=== PATIENT | female | born 1965 | race Caucasian/White ===

== ENCOUNTER 2020-12-01 13:04 | Inpatient (IN) | payer MEDICARE, OTHER ==
[~2020-12-01] VITALS: Ht 162.6 cm; Wt 72.6 kg
[2020-12-01] MEDS ORDERED: MIRT45TA83 PO (13:47)
[2020-12-01] MEDS ORDERED: ZOLP10TA2 PO (13:47)
[2020-12-01] MEDS ORDERED: TIOT18CA3 IH (13:47)
[2020-12-01] MEDS ORDERED: BUDE10.2 INH (13:47)
[2020-12-01] MEDS ORDERED: AMOX500C2 PO (13:47)
[2020-12-01] MEDS ORDERED: IBUP100O19 PO (13:47)
[2020-12-01] MEDS ORDERED: LEVE500T9 PO (13:47)
[2020-12-01] MEDS ORDERED: SUMA100T16 PO (13:47)
[2020-12-01] MEDS ORDERED: ESZO3TAB27 PO (13:47)
[2020-12-01] MEDS ORDERED: ALPR0.255 PO (13:47)
[2020-12-01] MEDS ORDERED: ALPR0.5T8 PO ×2 (13:47)
[2020-12-01] MEDS ORDERED: ALBU8.5H8 INH (13:47)
[2020-12-01] MEDS ORDERED: DEXL60CA3 PO (13:47)
[2020-12-01] MEDS ORDERED: CLON0.5T4 PO (13:47)
[2020-12-01] MEDS ORDERED: QUET400T PO (13:47)
[2020-12-01] MEDS ORDERED: BENZ1TAB7 PO (13:47)
[2020-12-01] MEDS ORDERED: IBUPROFEN 600 MG TABLET PO ONE (14:00)
--- NOTE | 2020-12-01 14:04 | NUR ---
PT CO LEFT FINGER TIPS PAIN, PT SAYS THAT SHE FELL DOWN COUPLE OF DAYS AGO. ER MD ASSESSED THE PT, NO X-RAY NEEDED. MEDICATED FOR PAIN.
[2020-12-01] MEDS ORDERED: IBUPROFEN 600 MG TABLET ONE (14:09)
--- NOTE | 2020-12-01 16:10 | NUR ---
pt transfered to mhu in stable condition.
[2020-12-01] MEDS ORDERED: MAGNESIUM HYDROXIDE 30 ML LIQUID UDC PO PRN (16:30)
[2020-12-01] MEDS ORDERED: LORAZEPAM 0.5 MG TABLET PO PRN (16:30)
[2020-12-01] MEDS ORDERED: NICOTINE 21 MG/24HR PATCH TD ONE (17:30)
[2020-12-01] MEDS: ACETAMINOPHEN 325 MG TABLET PO PRN (17:30)
--- NOTE | 2020-12-01 17:50 | NUR ---
ADMISSION NOTE: Patient admitted to MHU room 141-A from the ER accompanied by nursing staff. Patient brought onto the unit in a wheelchair without adverse event. Patient's belongings inventoried with patient. Patient provided with education about the unit rules and policies and provided with orientation to the unit and her assigned room. Skin assessment completed, patient does not have dentures, hearing aids, or glasses. patient provided with patient's rights handbooks. Upon [id number] assessment, patient is anxious, restless, hyperactive, and hyperverbal. Patient appears disheveled and unkempt. She has appropriate interaction, but requires constant redirection during conversation due to tangential thoughts with flight of ideas. Patient denies SI/HI/VH. Reports occasional AH of "good voices" telling her she is safe. Patient has paranoid delusions. She believes that her room mate, Titus Mercedes, is purposely lying to get patient in trouble and killed by the gangs. patient believes that her whole family has been murdered by her ex husbands who are also trying to murder her. Patient reports occasional marijuana use. Reports smoking 2 packs of cigarettes daily, Nicotine patch ordered and administered. Patient reports she has a history of Bipolar Disorder and has a history of multiple manic episodes and inpatient psychiatric administrations. Patient provided with education about impulse control and to communicate her needs to staff appropriately.
[2020-12-01 20:20] VITALS: BP 117/66
[2020-12-01] MEDS: MIRTAZAPINE 15 MG TABLET PO SCH (21:04)
[2020-12-01] MEDS: QUETIAPINE FUMARATE 200 MG TABLET PO SCH (21:04)
[2020-12-01] MEDS: GABAPENTIN 300 MG CAPSULE PO SCH (21:04)
[2020-12-01] MEDS ORDERED: ALBUTEROL SULFATE 8 GM HFA.AER.AD INH PRN (22:30)
[2020-12-01] MEDS ORDERED: ALBUTEROL SULFATE 2.5 MG/3 ML NEBU NEB PRN (22:45)
--- NOTE | 2020-12-02 06:12 | NUR ---
Patient slept 7.30 hours last night without needing any PRN medications. Patient presented last night unkept and disheveled. Weapons And Tactics Instructor was unable to engage in any meaningful conversation. Patients speech is tangental and hyperverbal. Patient was energetic with poor eye contact. After patient went to sleep, no issues arouse. Continuing to monitor patient for safety, and to provide assistance when needed, following the plan of care.
[2020-12-02] MEDS: ACETAMINOPHEN 325 MG TABLET PO PRN (07:01)
[2020-12-02 07:30] VITALS: BP 132/90
[2020-12-02] MEDS: GABAPENTIN 300 MG CAPSULE PO SCH ×3 (09:03→16:51)
[2020-12-02] MEDS: NICOTINE 21 MG/24HR PATCH TD SCH (09:03)
[2020-12-02] MEDS: AMOXIcillin 500 MG CAPSULE PO SCH ×2 (09:34→16:51)
--- NOTE | 2020-12-02 13:19 | NUR ---
Firearms Report: Customer Sales Distributor completed and submitted a DOJ firearms report for 5150 danger to others and grave disability certifications. A copy of report has been placed in patient chart.
--- NOTE | 2020-12-02 15:17 | NUR ---
PATI Calender Let Off OperatorRoad Hogger Operator: PATI left a voicemail for patient's immigration case manager Oseas ([phone]) from [facility] to discuss treatment and discharge plan.
--- NOTE | 2020-12-02 15:17 | NUR ---
PATI Initial Discharge Plan: Patient was currently residing at a [facility] [address] [place] lodging manager, Taniya Son ([phone]). Patient will require alternate SNF placement upon discharge. PATI left a message for patient's skilled nursing case manager Oseas ([phone]) from [facility]. PATI will continue to work with patient and MD to ensure a safe and proper discharge plan.
--- NOTE | 2020-12-02 15:18 | NUR ---
PATI Collateral Information: SW spoke with patient's roommate, Wilmer ([phone]) who provided collateral information. Wilmer stated that the room and board is not a safe environment for the patient and that the patient needs alternate placement.
--- NOTE | 2020-12-02 15:19 | NUR ---
Brief Substance Abuse Intervention: Patient was provided with a brief substance abuse intervention and referred to [facility] [address], [place] [address] ([phone]); [place] [facility] [address], [address], [place] [address] ([phone]); [facility] ([phone]); [facility] ([phone]); [facility] ([phone]); and National Suicide Prevention Lifeline ([phone]).
[2020-12-02] MEDS: IBUPROFEN 400 MG TABLET PO PRN (15:55)
[2020-12-02 16:00] VITALS: BP 114/84
--- NOTE | 2020-12-02 17:56 | NUR ---
Patient seen and examined by MD Sterling, c/o of back pain. ordered ibuprofen 400mg q8H PRN given. Patient compliant with medication. no agitation noted. will continue monitor
[2020-12-02] MEDS: QUETIAPINE FUMARATE 200 MG TABLET PO SCH (20:12)
[2020-12-02] MEDS: MIRTAZAPINE 15 MG TABLET PO SCH (20:12)
[2020-12-02 20:22] VITALS: BP 159/89
--- NOTE | 2020-12-03 06:52 | NUR ---
PT SLEPT 10 H. PT IN NO ACUTE DISTRESS. PRESCRIBED MEDICATION GIVEN AND PT TOLERATED IT WELL. SAFETY AND COMFORT PROVIDED. WILL ENDORSE TO INCOMING NURSE FOR CONTINUITY OF CARE.
[2020-12-03 07:30] VITALS: BP 144/75
--- NOTE | 2020-12-03 07:30 | NUR ---
Patient is resting in bed. Awake, alert and oriented times 3. No sign of distress noted at this time. Safety precautions are in place. Will continue to monitor.
[2020-12-03] MEDS: GABAPENTIN 300 MG CAPSULE PO SCH ×3 (09:30→17:02)
[2020-12-03] MEDS: AMOXIcillin 500 MG CAPSULE PO SCH ×2 (09:30→17:02)
[2020-12-03] MEDS: NICOTINE 21 MG/24HR PATCH TD SCH (09:33)
[2020-12-03] MEDS: ACETAMINOPHEN 325 MG TABLET PO PRN (12:30)
[2020-12-03 16:42] VITALS: BP 130/96
--- NOTE | 2020-12-03 18:50 | NUR ---
Patient left resting in bed. No sign of distress noted. Patient remained calm and to herself. All medications given as ordered. Safety precautions are in place. Will endorse to the oncoming nurse.
[2020-12-03 20:12] VITALS: BP 148/85
[2020-12-03] MEDS: MIRTAZAPINE 15 MG TABLET PO SCH (20:25)
[2020-12-03] MEDS: QUETIAPINE FUMARATE 200 MG TABLET PO SCH (20:25)
[2020-12-03] MEDS: IBUPROFEN 400 MG TABLET PO PRN (20:25)
--- NOTE | 2020-12-03 21:30 | NUR ---
Received patient in her room c/o pain in her hand and asking for Motrin, will administer per order. No s/s of acute distress noted at this time. Compliant with medications. Q15 min checks in place for safety.
--- NOTE | 2020-12-04 06:49 | NUR ---
Patient slept 6 hours without PRN assistance. All needs were met and attended to. Q15 min safety checks remain intact
[2020-12-04 07:08] LABS: BASOPHILS % (AUTO) 0.7 % (0.0-2.0); EOSINOPHILS # (AUTO) 0.1 K/uL (0.0-0.7); HEMATOCRIT 42.1 % (31.2-41.9); HEMOGLOBIN 13.7 g/dL (10.9-14.3); LYMPHOCYTES # (AUTO) 2.2 K/uL (20.0-40.0); LYMPHOCYTES % (AUTO) 51.5 % (20.5-51.5); MEAN CORPUSCULAR HEMOGLOBIN 30.7 uug (24.7-32.8); MEAN CORPUSCULAR HGB CONC 33 g/dL (32.3-35.6); MEAN CORPUSCULAR VOLUME 94.5 fL (75.5-95.3); MONOCYTES # (AUTO) 0.6 K/uL (2.0-10.0); MONOCYTES % (AUTO) 12.9 % (0.0-11.0); NEUTROPHILS # (AUTO) 1.4 K/uL (1.8-8.9); NEUTROPHILS % (AUTO) 31.9 % (38.5-71.5); PLATELET COUNT (AUTO) 200 K/uL (179-408); RED BLOOD CELL COUNT(AUTO) 4.46 MIL/uL (3.63-4.92); WHITE BLOOD COUNT (AUTO) 4.3 K/uL (3.8-11.8)
[2020-12-04 07:30] VITALS: BP 123/90
[2020-12-04 07:45] LABS: THYROID STIMULATING HORMONE 1.284 mIU/mL (0.358-3.740)
[2020-12-04 07:46] LABS: BILIRUBIN,TOTAL 0.3 mg/dL (0.2-1.0); CREATININE 0.9 mg/dL (0.6-1.3); PHOSPHOROUS 3.5 mg/dL (2.5-4.9); POTASSIUM 4.5 mmol/L (3.5-5.1); TOTAL PROTEIN, SERUM 5.8 g/dL (6.4-8.2)
[2020-12-04] MEDS: NICOTINE 21 MG/24HR PATCH TD SCH (08:41)
[2020-12-04] MEDS: AMOXIcillin 500 MG CAPSULE PO SCH ×2 (08:41→17:56)
[2020-12-04] MEDS: GABAPENTIN 300 MG CAPSULE PO SCH ×3 (08:41→17:56)
[2020-12-04] MEDS: IBUPROFEN 400 MG TABLET PO PRN ×2 (08:45→17:56)
[2020-12-04] MEDS: LORAZEPAM 1 MG TABLET PO PRN (10:44)
[2020-12-04] MEDS: ACETAMINOPHEN 325 MG TABLET PO PRN (11:06)
--- NOTE | 2020-12-04 11:40 | NUR ---
PATI SNF Referral: PATI faxed patient's referral packet to [facility] for review and possible placement attention to Destiny ( ). Addendum: 12/08/20 at 0958 by EVERT ZHENG Patient is accepted for placement. Addendum: 12/10/20 at 1230 by EVERT ZHENG Pati was just notified that they are unable to accept the patient due to behaviors. Spoke with Destiny from [facility].
--- NOTE | 2020-12-04 12:53 | NUR ---
PATI Individual Therapy Note: SW met with patient today and provided brief individual counseling to address patient's presenting problem of paranoid thought process. Patient presents withdrawn and does not want to engage in a meaningful conversation at this time. SW will remain available for patient for continued supportive counseling.
--- NOTE | 2020-12-04 15:37 | NUR ---
PATI PC Hearing: Patient had 5250 probable cause hearing today and it was upheld for grave disability.
[2020-12-04 16:00] VITALS: BP 130/70
--- NOTE | 2020-12-04 19:40 | NUR ---
PATIENT REMAINS COOPERATIVE WITH TREATMENT PLAN. COMPLIENT WITH MEDICATIONS. NO IM GIVEN SAFETY PRECAUTIONS IN PLACE. WILL REPORT TO NIGHT NURSE.
[2020-12-04] MEDS: QUETIAPINE FUMARATE 200 MG TABLET PO SCH (20:12)
[2020-12-04] MEDS: MIRTAZAPINE 15 MG TABLET PO SCH (20:12)
[2020-12-04 20:18] VITALS: BP 147/89
--- NOTE | 2020-12-05 06:50 | NUR ---
GPS: Remain calm and cooperative. Patient slept 7 hours without PRN given. All needs were met and attended. no agitation noted at this time. continue plan of care.
[2020-12-05 07:30] VITALS: BP 119/93
[2020-12-05] MEDS: AMOXIcillin 500 MG CAPSULE PO SCH ×2 (09:47→17:59)
[2020-12-05] MEDS: LORAZEPAM 1 MG TABLET PO PRN (09:47)
[2020-12-05] MEDS: GABAPENTIN 300 MG CAPSULE PO SCH ×3 (09:47→17:59)
[2020-12-05] MEDS: NICOTINE 21 MG/24HR PATCH TD SCH (09:47)
[2020-12-05] MEDS: IBUPROFEN 400 MG TABLET PO PRN ×2 (11:11→21:02)
[2020-12-05] MEDS: diphenhydrAMINE 25 MG CAP PO PRN (11:20)
[2020-12-05] MEDS: MAG HYDROX/AL HYDROX/SIMETH 30 ML LIQUID UDC PO PRN (13:14)
[2020-12-05 15:24] VITALS: BP_SYST 132; BP_SYST 133; BP_DIAS 72; BP_DIAS 85
[2020-12-05 20:08] VITALS: BP 124/81
[2020-12-05] MEDS: MIRTAZAPINE 15 MG TABLET PO SCH (20:54)
[2020-12-05] MEDS: QUETIAPINE FUMARATE 200 MG TABLET PO SCH (20:54)
--- NOTE | 2020-12-06 05:37 | NUR ---
Shift End Report: Slept 6.30 hours. BRP. No complaint presented all night. Cooperative and compliant to plan of care. No significant event reported. All needs attended and met. Continue care as planned.
[2020-12-06 07:30] VITALS: BP 135/63
[2020-12-06] MEDS: NICOTINE 21 MG/24HR PATCH TD SCH (08:22)
[2020-12-06] MEDS: GABAPENTIN 300 MG CAPSULE PO SCH ×3 (08:22→16:44)
[2020-12-06] MEDS: AMOXIcillin 500 MG CAPSULE PO SCH (08:22)
[2020-12-06] MEDS: LORAZEPAM 1 MG TABLET PO PRN ×2 (08:50→16:44)
[2020-12-06] MEDS: IBUPROFEN 400 MG TABLET PO PRN ×2 (08:51→16:44)
--- NOTE | 2020-12-06 08:51 | NUR ---
PATIENT IS ALERT AND ORIENTED SOMEWHAT ANXIOUS REQUESTING FOR ATIVAN AND MOTRIN MEDICATED ORDERED SEEN AMBULATORY ON THE HALLWAY REMAIN ON ATB FOR UTI WITH NO ADVERSE OR ALLERGIC REACTIONS AT THIS TIME COMPLIANT WITH ALL MEDICATIONS AND CARE WILL CONTINUE TO OBSERVE AND PROVIDE SAFETY.
[2020-12-06] MEDS: diphenhydrAMINE 25 MG CAP PO PRN ×2 (10:25→20:41)
[2020-12-06] MEDS: MAG HYDROX/AL HYDROX/SIMETH 30 ML LIQUID UDC PO PRN (11:29)
[2020-12-06 16:00] VITALS: BP 122/78
--- NOTE | 2020-12-06 18:00 | NUR ---
ATIVAN AND MOTRIN REPEATED ORDERED PER PATIENTS REQUEST AND STATED EFFECTIVE PATIENT IS COOPERATIVE BUT HAS PEROIDS OF ANXIETY MADE COMFORTABLE WILL CONTINUE TO OBSERVE AND PROVIDE SAFE AND THERAPEUTIC ENVIRONMENTS AT ALL TIMES.
[2020-12-06 20:20] VITALS: BP 119/70
[2020-12-06] MEDS: MIRTAZAPINE 15 MG TABLET PO SCH (20:41)
[2020-12-06] MEDS: QUETIAPINE FUMARATE 200 MG TABLET PO SCH (20:41)
--- NOTE | 2020-12-07 05:40 | NUR ---
Received patient last night, awake and alert requesting Benadryl. Patient is hyperverbal and was not able to engage in meaningful conversation d/t tangential speech. Liner Checker found folded up clothes in patients bed that belonged to her roommate. Patient returned them at the request of this underwriter mortgage loan. Total sleep hours were 7.15. Continuing to monitor patient for safety, hoarding, SI , and any issues that may arise with her peers. Patient has been medication compliant.
[2020-12-07 07:30] VITALS: BP 126/78
--- NOTE | 2020-12-07 08:00 | NUR ---
PATIENT IS AWAKE ALERT COOPERATIVE AND COMPLIANT WITH MEDICATIONS UP AND AMBULATED TO DESIRED DESTINATIONS PATIENT ENCOURAGED TO STAY OF OF HER ROOM AND BED AND GO FOR ACTIVITIES MUCH ABLE AND SHE EXPRESSED UNDERSTANDING.
[2020-12-07] MEDS: NICOTINE 21 MG/24HR PATCH TD SCH (08:10)
[2020-12-07] MEDS: GABAPENTIN 300 MG CAPSULE PO SCH ×3 (08:11→16:52)
[2020-12-07] MEDS: IBUPROFEN 400 MG TABLET PO PRN ×2 (08:11→20:19)
[2020-12-07] MEDS: LORAZEPAM 1 MG TABLET PO PRN ×2 (11:31→20:21)
[2020-12-07] MEDS: diphenhydrAMINE 25 MG CAP PO PRN ×2 (11:31→21:09)
[2020-12-07] MEDS: MAG HYDROX/AL HYDROX/SIMETH 30 ML LIQUID UDC PO PRN (13:58)
--- NOTE | 2020-12-07 13:58 | NUR ---
PATIENT IS REQUESTING FOR MYLANTA STATED HAS INDIGESTION GIVEN ORDERED.
[2020-12-07 15:10] VITALS: BP 106/65
--- NOTE | 2020-12-07 18:00 | NUR ---
RESTING STATED WILL LIKE TO TALK WITH THE DOCTOR TO GO OVER HER MEDICATIONS STATED THAT SHE WAS SUPPOSED TO BE GETTING PROTONIX LEFT A MESSAGE FOR THE PROVIDER WHO ALREADY MADE ROUNDS WILL ENDORSE FOR RE EVALUATION TOMORROW.
[2020-12-07 20:13] VITALS: BP 117/73
[2020-12-07] MEDS: QUETIAPINE FUMARATE 200 MG TABLET PO SCH (20:19)
[2020-12-07] MEDS: MIRTAZAPINE 15 MG TABLET PO SCH (20:19)
[2020-12-08] MEDS: TEMAZEPAM 7.5 MG CAPSULE PO PRN (02:22)
--- NOTE | 2020-12-08 05:35 | NUR ---
Patient slept a total of 7.00 hours last night. She got up a couple of times requesting PRN medications. At one point she was verbalizing fear of her roommate, which the caption writer provided reassurance. Its noted that the patient has multiple items around the bedside such as clothes, items off the food tray, etc. Hyperverbal and tangental speech. Continue to monitor for possible behavior escalation related to her roommate. No acute issues at this time.
[2020-12-08 07:30] VITALS: BP 102/72
[2020-12-08] MEDS: GABAPENTIN 300 MG CAPSULE PO SCH ×3 (08:00→16:33)
[2020-12-08] MEDS: NICOTINE 21 MG/24HR PATCH TD SCH (08:00)
[2020-12-08] MEDS: LORAZEPAM 1 MG TABLET PO PRN ×2 (08:44→15:12)
[2020-12-08] MEDS: diphenhydrAMINE 25 MG CAP PO PRN ×2 (08:44→17:04)
[2020-12-08] MEDS: IBUPROFEN 400 MG TABLET PO PRN (08:44)
--- NOTE | 2020-12-08 09:30 | NUR ---
patient alert and oriented x4. she is cooperative, redirectable, but is anxious, restless, and needy. patient is intrusive and focused on PRN medication. patient denies SI/HI, denies AH/VH, but appears internally preoccupied. she states she does not currently have AH but has them sometimes. patient is adherent with medication, no adverse reaction noted. patient disheveled and unkempt. patient encouraged to participate in the unit milieu. patient able to perform self care and ADL's independently. provided with education about impulse control and safety.
[2020-12-08] MEDS: MAG HYDROX/AL HYDROX/SIMETH 30 ML LIQUID UDC PO PRN (11:47)
[2020-12-08 15:15] VITALS: BP 136/77
[2020-12-08] MEDS: ACETAMINOPHEN 325 MG TABLET PO PRN (15:17)
--- NOTE | 2020-12-08 15:29 | NUR ---
PATI Individual Therapy Note: SW met with patient today and provided brief individual counseling to address patient's presenting problem of paranoid thought process. Patient presents withdrawn and isolative in her room. Patient presents with a restricted affect. SW attempted to discuss discharge plan with the patient however patient began to become dismissive and refused to engage in the conversation at this time. SW will remain available for patient for continued supportive counseling and ongoing treatment and discharge planning.
[2020-12-08] MEDS: AMOXIcillin 500 MG CAPSULE PO SCH (16:33)
[2020-12-08] MEDS: QUETIAPINE FUMARATE 200 MG TABLET PO SCH (20:02)
[2020-12-08] MEDS: MIRTAZAPINE 15 MG TABLET PO SCH (20:03)
[2020-12-08 20:08] VITALS: BP 127/75
[2020-12-09] MEDS: TEMAZEPAM 7.5 MG CAPSULE PO PRN (01:45)
[2020-12-09] MEDS: IBUPROFEN 400 MG TABLET PO PRN ×3 (03:15→20:33)
[2020-12-09] MEDS: PANTOPRAZOLE SODIUM 40 MG TABLET.DR PO SCH (06:11)
[2020-12-09] MEDS: diphenhydrAMINE 25 MG CAP PO PRN ×2 (06:19→16:19)
[2020-12-09 08:15] VITALS: BP 136/62
[2020-12-09] MEDS: GABAPENTIN 300 MG CAPSULE PO SCH ×3 (08:57→16:19)
[2020-12-09] MEDS: NICOTINE 21 MG/24HR PATCH TD SCH (08:57)
[2020-12-09] MEDS: AMOXIcillin 500 MG CAPSULE PO SCH ×2 (08:58→16:20)
[2020-12-09] MEDS: LORAZEPAM 1 MG TABLET PO PRN ×3 (09:36→22:20)
[2020-12-09] MEDS: ACETAMINOPHEN 325 MG TABLET PO PRN ×2 (09:36→16:20)
--- NOTE | 2020-12-09 10:00 | NUR ---
Received pt sitting up on side of bed, A&Ox4, able to verbalize needs. Pt noted anxious and hyperverbal, reassurance provided. Medications administered per order, pt adherent with regimen, no a/r noted. Pt requested PRN Tylenol for pain and PRN Ativan for anxiety, administered per order, pt reported effective. Pt denies SI/HI/VH, reports AH at this time. Upon interview, pt reported hearing "many voices" that are "both" male and female, related to "insurance claims" and "police". Redirection provided. Pt able to verbally CFS. Pt able to ambulate safely and perform self care. Safe environment ensured. Will continue to monitor.
[2020-12-09 16:00] VITALS: BP 124/86
[2020-12-09] MEDS: MAGNESIUM HYDROXIDE 30 ML LIQUID UDC PO PRN (16:21)
--- NOTE | 2020-12-09 18:45 | NUR ---
EOSS: Pt in assigned room, awake, alert, no acute distress. Pt noted anxious, somewhat fixated on PRN medications, stated effective. Reassurance and redirection provided PRN. Due medications given per order, no a/r noted. VSS. Pt remained guarded and in assigned room for most of the day. Encouraged pt to participate in group and with peers, pt declined. Safe environment and fall precautions maintained. Will endorse care to screw machine operator nurse.
[2020-12-09 20:02] VITALS: BP 113/72
[2020-12-09] MEDS: QUETIAPINE FUMARATE 200 MG TABLET PO SCH (20:02)
[2020-12-09] MEDS: MIRTAZAPINE 15 MG TABLET PO SCH (20:02)
[2020-12-10] MEDS: diphenhydrAMINE 25 MG CAP PO PRN ×2 (01:14→17:18)
[2020-12-10] MEDS: ACETAMINOPHEN 325 MG TABLET PO PRN ×2 (04:04→11:53)
--- NOTE | 2020-12-10 06:01 | NUR ---
Pt slept a total of 5.45 hours last night. Pt c/o pain in the beginning of the shift and requested Motrin. She also requested Ativan and Benadryl during shift. Tolerated all given medications well. Denies SOB or cough. Denies SI or HI at this time. Bed is locked and in lowest position, safety precautions in place. No other issues or concerns at this time, will endorse to day shift.
[2020-12-10] MEDS: PANTOPRAZOLE SODIUM 40 MG TABLET.DR PO SCH (06:06)
[2020-12-10] MEDS: IBUPROFEN 400 MG TABLET PO PRN (06:38)
[2020-12-10] MEDS: LORAZEPAM 1 MG TABLET PO PRN ×2 (06:38→11:53)
[2020-12-10 07:30] VITALS: BP 123/74
[2020-12-10] MEDS: AMOXIcillin 500 MG CAPSULE PO SCH ×2 (08:02→16:11)
[2020-12-10] MEDS: GABAPENTIN 300 MG CAPSULE PO SCH ×3 (08:02→16:15)
[2020-12-10] MEDS: NICOTINE 21 MG/24HR PATCH TD SCH (08:02)
--- NOTE | 2020-12-10 12:30 | NUR ---
PATI Coordination of Care: Faxed patient's referral packet attention to [facility] to [facility] ([phone]) and spoke with CJ who stated patient is accepted.
--- NOTE | 2020-12-10 15:55 | NUR ---
received Pt in room, awake, A&Ox4,very anxious. Pt compliant with all am medications, Pt denies SI/HI/VH, but reports AH at this time. Pt reassured PRN, safe environment ensured. Continue to monitor.
[2020-12-10 16:00] VITALS: BP 111/60
[2020-12-10] MEDS: MAG HYDROX/AL HYDROX/SIMETH 30 ML LIQUID UDC PO PRN (16:11)
[2020-12-10 20:05] VITALS: BP 109/71
[2020-12-10] MEDS: QUETIAPINE FUMARATE 200 MG TABLET PO SCH (20:07)
[2020-12-10] MEDS: MIRTAZAPINE 15 MG TABLET PO SCH (20:07)
[2020-12-11] MEDS: PANTOPRAZOLE SODIUM 40 MG TABLET.DR PO SCH (06:07)
[2020-12-11 07:30] VITALS: BP 130/87
[2020-12-11 08:00] VITALS: BP 115/59
[2020-12-11] MEDS: AMOXIcillin 500 MG CAPSULE PO SCH (08:25)
[2020-12-11] MEDS: GABAPENTIN 300 MG CAPSULE PO SCH ×3 (08:25→16:16)
[2020-12-11] MEDS: NICOTINE 21 MG/24HR PATCH TD SCH (08:25)
[2020-12-11] MEDS: LORAZEPAM 1 MG TABLET PO PRN ×2 (08:33→18:31)
[2020-12-11] MEDS: IBUPROFEN 400 MG TABLET PO PRN ×2 (08:34→16:18)
[2020-12-11] MEDS: MAGNESIUM HYDROXIDE 30 ML LIQUID UDC PO PRN (11:22)
[2020-12-11] MEDS: diphenhydrAMINE 25 MG CAP PO PRN (11:23)
--- NOTE | 2020-12-11 11:55 | NUR ---
gps/tactical air defense controller- specimen for covid 19 swab obtained, sent to lab.
--- NOTE | 2020-12-11 14:31 | NUR ---
Gps/Coal Deliverer- Complained of still being constipated, no results from MOM 30 ml, warm prune juice offered. Adequate fluid intake. Continue to make her needs kown to staff , dc planning for tomorrow , patient was well informed.
[2020-12-11 16:42] VITALS: BP 129/63
[2020-12-11 20:00] VITALS: BP 115/59
[2020-12-11] MEDS: MIRTAZAPINE 15 MG TABLET PO SCH (20:15)
[2020-12-11] MEDS: ACETAMINOPHEN 325 MG TABLET PO PRN (20:15)
[2020-12-11] MEDS: QUETIAPINE FUMARATE 200 MG TABLET PO SCH (20:15)
[2020-12-12] MEDS: PANTOPRAZOLE SODIUM 40 MG TABLET.DR PO SCH (06:03)
--- NOTE | 2020-12-12 06:43 | NUR ---
PT SLEPT 8 H. PT IN NO ACUTE DISTRESS. PT GIVEN TYLENOL PRN. PRESCRIBED MEDICATION GIVEN AND PT TOLERATED IT WELL. SAFETY AND COMFORT PROVIDED. ALL NEEDS ARE MET. WILL ENSORSE TO INCOMING NURSE FOR CONTINUITY OF CARE.
[2020-12-12 07:30] VITALS: BP 155/92
[2020-12-12] MEDS: GABAPENTIN 300 MG CAPSULE PO SCH ×2 (08:07→12:24)
[2020-12-12] MEDS: NICOTINE 21 MG/24HR PATCH TD SCH (08:07)
--- NOTE | 2020-12-12 09:00 | NUR ---
Gps/Stencil Cutter- Had been compliant with routine am meds. anxious, about her impending discharged reassured
--- NOTE | 2020-12-12 09:55 | NUR ---
PATI Discharge Note: Patient will be discharge back home to her [facility] [address] [place] [address] ([phone]). PATI spoke with Taniya Son ([phone]), Overhead Foreman who confirmed patient is welcome back. Patient will be provided Taxi transportation and a taxi voucher today at 1PM. Patient is alert and oriented x4 and is aware and agreeable with discharge plan. Patient denies suicidal or homicidal ideation. Patient presents with euthymic mood and congruent affect. Patient will be following up with her psychiatrist Dr. Rodriguez at [facility] [address] [place] [address] ([phone]) and has a follow up appointment scheduled on Tuesday12/15/20 at 2PM. Patient will be following up with her primary care physician Dr. Rasheed [facility], [place] [address] ([phone]). Patient was provided with a brief substance abuse intervention for cigarettes and marijuana abuse and referred to [facility] [address] [place] [address] ([phone]); [place] [facility] [address], [place] [address] ([phone]); [facility] ([phone]); [facility] ([phone]); [facility] ([phone]); and National Suicide Prevention Lifeline (194-302-9295).
--- NOTE | 2020-12-12 10:04 | NUR ---
Gps/microfilm clerk- Per Junior Qa Analyst Brittnee , discharge plan changed ,to be discharge to her Home & Board in [address] , [place] [address]. patient refused to go to SNF as previously arranged. .
--- NOTE | 2020-12-12 10:50 | NUR ---
CALLED IN PRESCRIPTION , SPOKE WITH PHARMACIST JUANIS, ([facility]), PATIENT AWARE
[2020-12-12] MEDS: LORAZEPAM 1 MG TABLET PO PRN (11:31)
--- NOTE | 2020-12-12 12:56 | NUR ---
Gps/Supervisor Furnace Room- Reviewed prescriptions/medications, diet, safety, follow up with Dr Rodriguez (Psychiatrist) Dr Rasheed (Special Education Bus Driver) , safety emphasized, patient, verbalized understanding. All belongings given back to patient. Taxi was arranged to transport patient to home in [address], [address]. All belongings and valuable given back to patient. No complaints noted, pt. appeared to be in good spirit.
== END 2020-12-12 13:45 | disposition still patient (30) | DRG 885 ==
LOC: ER 13:04 → GPS 15:53
PROVIDERS: ADMIT Psychiatry & Neurology Psychiatry; ATTEND Internal Medicine
DX: F31.2 Bipolar disorder, current episode manic severe with psychotic features (principal); G93.40 Encephalopathy, unspecified; F15.10 Other stimulant abuse, uncomplicated; Z91.14 Patient's other noncompliance with medication regimen; Z87.891 Personal history of nicotine dependence; G40.909 Epilepsy, unspecified, not intractable, without status epilepticus; Z20.822 Contact with and (suspected) exposure to COVID-19; F12.10 Cannabis abuse, uncomplicated; R53.1 Weakness
CPT/HCPCS: 36415; 71045; 83735; 84100; 84443; 85025; 93005; 94664; A4663; Q0163